=== PATIENT | male | born 1945 ===

== ENCOUNTER 2021-06-20 13:36 | Outpatient (CLI) | payer MEDICARE, BC, SELFPAY ==
--- NOTE | 2021-06-20 13:30 | RT.EKG_ITS ---
APPROVED REPORT Exam: Resting ECG Reason for Exam: afib Patient Location: O HR:72 bpm ECG Measurements Heart Rate 72 AXIS PA 188 P 66 QRSd 108 QRS 73 QT 406 T 10 QTc 445 Conclusion Sinus rhythm...normal P axis, V-rate 50- 99 Atrial premature complex...SV complex w/ short R-R interval Probable left atrial enlargement...P >50mS, <-0.10mV V1 Nondiagnostic inferior Q waves
== END 2021-06-20 13:37 | disposition home or self-care (01) ==
LOC: DI.CARD 13:37
PROVIDERS: Visit Provider Internal Medicine Cardiovascular Disease
DX: I48.91 Unspecified atrial fibrillation (principal); I49.1 Atrial premature depolarization
CPT/HCPCS: 93010

== ENCOUNTER → 2021-06-20 13:36 | Outpatient (BNVA) | payer MEDICARE, BC, SELFPAY | PROVIDERS: Visit Provider Internal Medicine Cardiovascular Disease | DX: R06.00 Dyspnea, unspecified (principal); E78.5 Hyperlipidemia, unspecified; R07.9 Chest pain, unspecified; Z01.810 Encounter for preprocedural cardiovascular examination | CPT/HCPCS: 93005; 99203 ==

== ENCOUNTER 2021-06-27 00:05 | Outpatient (CLI) | payer MEDICARE, BC, SELFPAY ==
--- NOTE | 2021-06-27 11:15 | DI.NM_ITS ---
APPROVED REPORT Exam: Pharmacologic Patient Location: Out-Patient Room/Bed: Stress Nurse: Sindi Tejada RN Ordering Provider:CHON DE LEÓN, Contact Number: [phone] BMI: 26.60 Baseline Rhythm: Sinus Bradycardia Indications: Fatigue, palpitations, dyspnea on exertion Medical History Medical History: Hyperlipidemia, prediabetes, anxiety, chronic pain, gerd Cardiac Medications: Atorvastatin, aspirin, tadalafil, gabapentin, omeprazole Allergies: NKA Cardiac Risk Factors: Hyperlipidemia, prediabetes, family hx Previous Cardiac Procedures: None Pretest Chest Pain Characteristics: None Exercise History: Physically active Physical Disabilities: None Lung Sounds: Clear to auscultation Heart Sounds: Regular Stress Test Details Test: Exercise stress converted to pharmacologic stress due to failure to obtain a diagnostic stress test. Reason for pharmacologic stress test: changed from exercise stress test due to inability to reach t arget heart rate. Nuclear Acquisition: Rest Tc-99m/Stress Tc-99m 1 day Rest Isotope: Tc-99m Sestamibi. Dose: 11.0 Date: 06/27/2021 Injection Time: 1125 Stress Isotope: Tc-99m Sestamibi. Dose: 34.1 Date: 06/27/2021 Injection Time: 1342 HR Resting HR Supine: 57 bpm Max Heart Rate (APMHR): 147.794082 bpm Resting HR Standin bpm Target HR (85% APMHR): 124.824479 bpm Max HR Achieved: 104 bpm % of APMHR: 70.75 Recovery HR: 77 bpm HR response to stress: Blunted HR response to stress BP Resting BP Supine: 162/84 mmHg Resting BP Standin/88 mmHg Max BP: 190/80 mmHg Recovery BP: 150/78 mmHg BP response to stress: Normal blood pressure response to stress. ECG Resting ECG: Sinus Bradycardia Ectopy: None Stress ECG: Sinus Tachycardia ST Change: No significant ST segment changes noted Arrhythmia: Frequent PACs, rare PVCs Recovery ECG: Sinus Rhythm, , Clear, Sinus Rhythm Recovery ST Change: No significant ST segment changes noted Recovery Arrhythmia: Frequent PACs, rare PVCs Clinical Reason for Termination: Fatigue Stress Symptoms: General Fatigue, Dyspnea Exercise duration: 7 min30 sec Highest Stage Reached: Stage 3: 3.4 mph at 14% grade. Exercise capacity: 9.34 METs River Treadmill Score: 9.7 Rate Pressure Product: Stress ECG Conclusion 1. The resting electrocardiogram was within normal limits 2. Patient exercised on the Hayes protocol and completed a workload of 9.34 METS, limited by fatigue 3. Exercise was augmented by pharmacologic stress with regadenoson due to inadequate heart rate of 70 % of predicted for age 4. The electrocardiographic portion of the test was nondiagnostic due to inadequate heart rate 5. See MPI for additional information River Treadmill Score is 9.7 which is Low risk. Stress Test Summary STAGE Time (mins) Speed (mph) Grade (%) HR BP SYMPTOMS METS Supine 57 162/84 Standing 62 140/88 SpO2 96% 1 3 1.7 10 86 148/80 SpO2 93% 4.6 2 6 2.5 12 93 168/80 SpO2 94% 7 3 9 3.4 14 94 Mild SOB, SpO2 94% 10.2 1 min post Lexiscan injection 99 190/80 Moderate SOB, SpO2 94% 3 min post Lexiscan injection 98 174/78 Mild SOB, SpO2 95% 6 min post Lexiscan injection 81 172/84 Mild SOB, SpO2 95% 9 min post Lexiscan injection 77 150/78 SOB resolved, SpO2 95% Pt requested stop of exercise at 7:30 due to fatigue. Exercise stress converted to pharmacologic stre ss due to inability to reach target heart rate. Treadmill resumed for low level exercise at 1.5mph an d 0% grade to be paired with pharmacologic stress. Pt tolerated low level exercise and Regadenoson we ll. MPI Conclusion Normal myocardial perfusion. No evidence of ischemia or prior infarction EF 56%, normal wall motion Radiologist Interpretation Radiologist agrees with Associate Professor Of Communication's Interpretation. Radiologist Interpretation by: Rosalia Shirley MD Interpretation Date/Time: 06/28/2021 16:47:40
[2021-06-27] MEDS: Regadenoson 0.4 MG/5 ML SYR IVP (14:10)
== END 2021-06-27 00:25 ==
PROVIDERS: Visit Provider Internal Medicine Cardiovascular Disease
DX: R06.00 Dyspnea, unspecified (principal); R53.83 Other fatigue; R00.2 Palpitations
CPT/HCPCS: 78452; 93016; 93018; 93306; 93017; J2785